=== PATIENT | male | born 1970 | race Asian ===

== ENCOUNTER → 2017-01-13 | Outpatient (CLI) | payer OTHER ==
--- NOTE | 2017-01-13 12:56 | REP ---
BILATERAL LOWER EXTREMITY DUPLEX DOPPLER VENOUS ULTRASOUND WITH ULTRASOUND EVALUATION FOR VENOUS REFLUX: Real-time compression and duplex Doppler interrogation of the bilateral lower extremity deep vein systems is performed. Bilaterally, common femoral, superficial femoral, and popliteal veins are fully compressible with transducer pressure and demonstrate normal spontaneous and phasic flow without evidence of deep venous thrombosis. Evaluation for venous reflux on the right demonstrates reflux in the common femoral vein to the greater saphenous vein. There is no evidence of an anterior accessory greater saphenous vein. There is reflux in the greater saphenous vein at the saphenofemoral junction with duration over 8 seconds. AP diameter of that vessel is 10 mm. There is reflux in the greater saphenous vein at the mid thigh with a diameter of 7 mm and a duration of over 6 seconds. There is reflux in the greater saphenous vein at the knee for a duration of 6.4 seconds, AP diameter 7 mm. There is no reflux in the superficial femoral vein, popliteal vein, or lesser saphenous vein. A large collateral vessel is seen communicating with the greater saphenous vein in the mid thigh coursing superficially and then rejoining the greater saphenous vein at the level of the knee. There is communication with the peripheral greater saphenous vein with calf veins posteriorly. Evaluation for venous reflux on the left demonstrates reflux in the common femoral vein to the greater saphenous vein. There is an anterior accessory greater saphenous vein present without reflux. There is reflux in the greater saphenous vein at the saphenofemoral junction where the vein measures 11 mm and duration of the reflux is over 9 seconds. There is reflux in the greater saphenous vein at the mid thigh level, AP diameter 7 mm and duration 5.9 seconds. There is reflux in the greater saphenous vein at the level of the knee with a diameter of 8 mm and duration of about 6 seconds. There is no reflux in the superficial femoral, popliteal, or lesser saphenous veins. Collateral vessel communicates with the greater saphenous vein at the mid to distal thigh level and feeds multiple collateral vessels in the medial calf extending to the ankle. Signed by Osmin Ochoa MD 01/13/2017 03:16 P
== END ==
LOC: M RAD 10:43
PROVIDERS: ATTEND Surgery Vascular Surgery
DX: M79.604 Pain in right leg (principal); M79.605 Pain in left leg

== ENCOUNTER → 2017-01-25 | Outpatient (CLI) | payer OTHER ==
[2017-01-25 14:08] LABS: MEAN CORPUSCULAR HEMOGLOBIN 29.7 pg (27.0-33.0); MEAN CORPUSCULAR HGB CONC 33.9 g/dl (32.0-36.5); MEAN CORPUSCULAR VOLUME 87.7 fl (80.0-96.0); RED CELL DISTRIBUTION WIDTH 12.9 % (11.5-14.5); WHITE BLOOD COUNT 3.4 K/mm3 (4.0-10.0)
[2017-01-25 14:41] LABS: ALBUMIN 4.5 GM/DL (3.2-5.2); ALBUMIN/GLOBULIN RATIO 1.29 (1.00-1.93); ALKALINE PHOSPHATASE 55 U/L (45-117); ALT/SGPT 61 U/L (12-78); ANION GAP 7 MEQ/L (8-16); AST/SGOT 25 U/L (15-37); BILIRUBIN,TOTAL 0.7 MG/DL (0.2-1.0); BLOOD UREA NITROGEN 15 MG/DL (7-18); CALCIUM LEVEL 9.3 MG/DL (8.5-10.1); CARBON DIOXIDE LEVEL 27 MEQ/L (21-32); CHLORIDE LEVEL 107 MEQ/L (98-107); CREATININE FOR GFR 0.78 MG/DL (0.70-1.30); GLOMERULAR FILTRATION RATE > 60.0 (>60); GLUCOSE, FASTING 87 MG/DL (70-105); POTASSIUM SERUM 4.3 MEQ/L (3.5-5.1); SODIUM LEVEL 141 MEQ/L (136-145)
== END ==
LOC: M LAB 13:24
PROVIDERS: ATTEND Surgery Vascular Surgery
DX: I87.393 Chronic venous hypertension (idiopathic) with other complications of bilateral lower extremity (principal)

== ENCOUNTER → 2017-02-17 | Day surgery (SDC) | payer OTHER ==
[~2017-02-17] VITALS: Ht 170.2 cm; Wt 81.6 kg
[~2017-02-17] MED LIST: ACETAMINOPHEN TAB 650MG DOSE (2X325MG) As Ordered ONE; ACETAMINOPHEN TAB 650MG DOSE (2X325MG) PO PRN; D5W/0.45% SODIUM CHLORIDE 1,000 ML IV SCH; LIDOCAINE 1% MDV 20ML VIAL As Ordered ONE; LIDOCAINE 2% INJ 100 MG/5 ML SDV (FOR ANES.) As Ordered ONE; LIDOCAINE W/EPINEPHRINE 1% 20ML VIAL As Ordered ONE; LR 1,000 ML IV ONE; LR 1,000 ML IV SCH; MIDAZOLAM INJ 2 MG/2 ML VIAL (J2250) As Ordered ONE; ONDANSETRON 4MG/2ML VIAL (J2405) As Ordered ONE; ONDANSETRON 4MG/2ML VIAL (J2405) IV PRN; PROPOFOL 200 MG/20 ML VIAL As Ordered ONE; fentaNYL 100 MCG/2 ML INJECTION (J3010) As Ordered ONE; fentaNYL 100 MCG/2 ML INJECTION (J3010) IV PRN
[2017-02-17 11:20] VITALS: BP 110/65
--- NOTE | 2017-02-28 19:15 | RO ---
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 Painful left lower extremity varicose veins. 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 Painful left lower extremity varicose veins. PROCEDURE: Left greater saphenous vein radiofrequency ablation 10-20 stab phlebectomy of painful varicose veins. SURGEON: Dr. Gordon Gomez. TAKER OUT: None. ANESTHESIA: Local monitored anesthesia care (MAC). ESTIMATED BLOOD LOSS: 50 mL IV FLUIDS: 600 mL. COMPLICATIONS: None. DRAINS: None. SPECIMENS: Left lower extremity varicose veins. IMPLANTS: None. INDICATION: Patient is a 46-year-old male with painful varicosities in the lower extremity who was evaluated and noted to have greater saphenous vein venous valvular insufficiency. Patient was evaluated and options were discussed with the patient and patient wished to proceed with greater saphenous vein radiofrequency ablation and stab phlebectomy of painful varicose veins after trying conservative therapy with mild success but continued symptomatology. Risks, benefits and alternative treatment options were discussed with the patient. Benefits included but were not limited to removal of painful varicose veins and relief of symptoms in the left lower extremity. Alternative treatment options including but were not limited to no intervention with continued conservative management. Risks included but were not limited to infection, bleeding, renal failure requiring hemodialysis, possible need for further open surgical intervention, cerebrovascular accident, myocardial infarction, pulmonary embolus, deep venous thrombosis (DVT), loss of limb, loss of life and poor outcome. Patient understands, accepts these risks and consents to proceed. PROCEDURE: The patient was taken to the operating room and placed prone on the operating room table and the left lower extremity was prepped and draped in a standard surgical fashion. A time out was completed with all members in the room confirming the appropriate patient, procedure and laterality. The ultrasound was then used to guide cannulation of the greater saphenous vein in the below knee region on the left lower extremity with the micropuncture needle after anesthetizing the overlying skin with 1% lidocaine mixed with 1/2% Marcaine. Real-time sonographic imaging was confirmed of the needle entering into the greater saphenous vein. The micropuncture wire was advanced through the micropuncture needle which was upsized to a micropuncture sheath. A J-wire was advanced through the micropuncture sheath which was upsized to a #7-Austrian sheath. The catheter was then advanced through the #7-Austrian sheath under ultrasound guidance and placed at the common femoral greater saphenous vein junction. The greater saphenous vein from the saphenofemoral junction to the entry site in the knee was then circumferentially anesthetized with tumescent solution after which the greater saphenous vein was ablated using radiofrequency ablation from 2 cm distal to the saphenofemoral junction down to the entry site in the below knee region. This was performed under ultrasound guidance. After the ablation was completed stab phlebectomies of varicose veins were performed in the left lower extremity which had been marked in the standing position in the preoperative holding area prior to entering in to the operating room. 10-20 stab phlebectomies were performed with removal of varicose vein which was sent for pathologic evaluation. [place] were used to close the stab phlebectomy sites. Dressings were then applied. Patient tolerated the procedure well. All instruments, sponge and needle counts were correct at the end of the case. There were no complications. Dr. Gomez was present for and directed the entire case. Patient was transferred to the recovery room awake, alert, extubated and in stable condition.
== END | disposition home or self-care (01) ==
LOC: M SDC 06:58
PROVIDERS: ATTEND Surgery Vascular Surgery
DX: I83.812 Varicose veins of left lower extremity with pain (principal); I87.393 Chronic venous hypertension (idiopathic) with other complications of bilateral lower extremity; I10 Essential (primary) hypertension; E78.00 Pure hypercholesterolemia, unspecified

== ENCOUNTER → 2017-06-28 | Outpatient (CLI) | payer OTHER ==
[2017-06-28 12:16] LABS: MEAN CORPUSCULAR HEMOGLOBIN 28.2 pg (27.0-33.0); MEAN CORPUSCULAR HGB CONC 33.1 g/dl (32.0-36.5); MEAN CORPUSCULAR VOLUME 85.3 fl (80.0-96.0); PLATELET COUNT, AUTOMATED 253 10^3/uL (150-450); RED CELL DISTRIBUTION WIDTH 13.4 % (11.5-14.5); WHITE BLOOD COUNT 2.8 10^3/uL (4.0-10.0)
[2017-06-28 12:50] LABS: ALBUMIN 4.5 GM/DL (3.2-5.2); ALBUMIN/GLOBULIN RATIO 1.32 (1.00-1.93); ALKALINE PHOSPHATASE 59 U/L (45-117); ALT/SGPT 48 U/L (12-78); ANION GAP 10 MEQ/L (8-16); AST/SGOT 23 U/L (7-37); BILIRUBIN,TOTAL 0.5 MG/DL (0.2-1.0); BLOOD UREA NITROGEN 10 MG/DL (7-18); CALCIUM LEVEL 8.9 MG/DL (8.5-10.1); CARBON DIOXIDE LEVEL 26 MEQ/L (21-32); CHLORIDE LEVEL 108 MEQ/L (98-107); GLOMERULAR FILTRATION RATE > 60.0 (>60); GLUCOSE, FASTING 95 MG/DL (70-105); POTASSIUM SERUM 4.6 MEQ/L (3.5-5.1); SODIUM LEVEL 144 MEQ/L (136-145); TOTAL PROTEIN 7.9 GM/DL (6.4-8.2)
== END ==
LOC: M LAB 11:35
PROVIDERS: ATTEND Surgery Vascular Surgery
DX: I83.812 Varicose veins of left lower extremity with pain (principal); I83.811 Varicose veins of right lower extremity with pain; I87.393 Chronic venous hypertension (idiopathic) with other complications of bilateral lower extremity

== ENCOUNTER 2017-08-08 08:58 | Day surgery (SDC) | payer OTHER ==
[2017-08-08] MEDS: LR 1,000 ML IV (10:03)
[2017-08-08] MEDS ORDERED: PROPOFOL 200 MG/20 ML VIAL As Ordered (12:29)
[2017-08-08] MEDS ORDERED: fentaNYL 100 MCG/2 ML INJECTION (J3010) As Ordered (12:29)
[2017-08-08] MEDS ORDERED: MIDAZOLAM INJ 5 MG/ML VIAL (J2250) As Ordered (12:29)
[2017-08-08] MEDS: LIDOCAINE 1% SDV INJ 30 ML VIAL As Ordered (12:57)
[2017-08-08] MEDS: LIDOCAINE W/EPINEPHRINE 1% 20ML VIAL As Ordered (13:38)
[2017-08-08] MEDS ORDERED: LR 1,000 ML IV (14:45)
[2017-08-08] MEDS ORDERED: ACETAMINOPHEN SUSP DYE FREE 160 MG/5 ML UDC PO (14:45)
[2017-08-08] MEDS ORDERED: fentaNYL 100 MCG/2 ML INJECTION (J3010) IV (14:45)
[2017-08-08] MEDS ORDERED: ONDANSETRON 4MG/2ML VIAL (J2405) IV (14:45)
[2017-08-08] MEDS ORDERED: PERCOCET 5MG/325MG TAB PO (14:45)
== END 2017-08-08 15:00 | disposition home or self-care (01) ==
LOC: M SDC 08:58
DX: I87.2 Venous insufficiency (chronic) (peripheral) (principal); I83.811 Varicose veins of right lower extremity with pain; I10 Essential (primary) hypertension
CPT/HCPCS: 36475

== ENCOUNTER → 2017-08-17 | Outpatient (CLI) | payer OTHER | LOC: M RAD 11:26 | DX: I83.811 Varicose veins of right lower extremity with pain (principal) | CPT/HCPCS: 93971 ==

== ENCOUNTER → 2018-08-03 | Outpatient (REF) | payer OTHER ==
[2018-08-03 17:25] LABS: APPEARANCE, URINE CLEAR (CLEAR); BACTERIA, URINE AUTO NEGATIVE (NEGATIVE); BILIRUBIN, URINE AUTO NEGATIVE (NEGATIVE); BLOOD, URINE BLOOD NEGATIVE (NEGATIVE); COLOR, URINE STRAW (YELLOW); GLUCOSE, URINE (UA) AUTO NEGATIVE (NEGATIVE); KETONE, URINE AUTO NEGATIVE (NEGATIVE); LEUKOCYTE ESTERASE, URINE AUTO NEGATIVE (NEGATIVE); NITRITE, URINE AUTO NEGATIVE (NEGATIVE); PROTEIN, URINE AUTO NEGATIVE (NEGATIVE); RBC, URINE AUTO 1 /HPF (0-3); SPECIFIC GRAVITY URINE AUTO 1.005 (1.002-1.035); SQUAMOUS EPITHELIAL CELL UR AU 0 /HPF (0-6); UROBILINOGEN, URINE AUTO 0.2 mg/dL (0.0-2.0); WBC, URINE AUTO 0 /HPF (0-3)
== END ==
LOC: M SFHCADAM 11:48
PROVIDERS: ATTEND Family Medicine
DX: R35.0 Frequency of micturition (principal)

== ENCOUNTER → 2018-08-20 | Outpatient (CLI) | payer OTHER | LOC: M LAB 17:12 | PROVIDERS: ATTEND Nurse Practitioner Family | DX: Z12.5 Encounter for screening for malignant neoplasm of prostate (principal) ==

== ENCOUNTER → 2018-08-20 | Outpatient (REF) | payer OTHER ==
[2018-08-20 18:59] LABS: APPEARANCE, URINE CLEAR (CLEAR); BACTERIA, URINE AUTO NEGATIVE (NEGATIVE); BILIRUBIN, URINE AUTO NEGATIVE (NEGATIVE); BLOOD, URINE BLOOD NEGATIVE (NEGATIVE); COLOR, URINE YELLOW (YELLOW); GLUCOSE, URINE (UA) AUTO NEGATIVE (NEGATIVE); KETONE, URINE AUTO NEGATIVE (NEGATIVE); LEUKOCYTE ESTERASE, URINE AUTO NEGATIVE (NEGATIVE); NITRITE, URINE AUTO NEGATIVE (NEGATIVE); PROTEIN, URINE AUTO NEGATIVE (NEGATIVE); RBC, URINE AUTO 0 /HPF (0-3); SPECIFIC GRAVITY URINE AUTO 1.018 (1.002-1.035); SQUAMOUS EPITHELIAL CELL UR AU 0 /HPF (0-6); UROBILINOGEN, URINE AUTO 0.2 mg/dL (0.0-2.0); WBC, URINE AUTO 0 /HPF (0-3)
== END ==
LOC: M SMT 18:01
PROVIDERS: ATTEND Nurse Practitioner Family
DX: R35.0 Frequency of micturition (principal)

== ENCOUNTER → 2018-08-23 | Outpatient (CLI) | payer OTHER ==
--- NOTE | 2018-08-23 18:57 | REP ---
Bladder ultrasound for urinary frequency and prostate volume: The bladder contains 579 ml of fluid and is adequately distended. No bladder wall abnormalities are identified. The postvoid bladder volume is 25.5 milliliters. Post volume residual is 4%. The The prostate measures 4.6 x 3.4 by 4.6 cm for a prostate volume of 37.65 millimeters. Normal values are 3 x 3 x 5 cm for a volume of 25 ml. Electronically Signed by Osmin Starr MD 08/23/2018 06:48 P
== END ==
LOC: M RAD 17:35
PROVIDERS: ATTEND Nurse Practitioner Family
DX: R35.0 Frequency of micturition (principal)